=== PATIENT | female | born 1950 | race Caucasian/White ===

== ENCOUNTER → 2018-07-21 18:24 | Outpatient (CLI) | payer BC ==
[2009-10-03 22:33] VITALS: BMI 33.7
== END | disposition home or self-care (01) ==
LOC: D.MAMMO 07-06 15:00
DX: Z12.31 Encounter for screening mammogram for malignant neoplasm of breast (principal)

== ENCOUNTER → 2018-09-08 08:07 | Outpatient (CLI) | payer MEDICARE, OTHER ==
[2009-10-03 22:33] VITALS: BMI 33.7
== END | disposition home or self-care (01) ==
LOC: D.HCCARDIO 08:07
PROVIDERS: ATTEND Internal Medicine Cardiovascular Disease
DX: I10 Essential (primary) hypertension (principal)

== ENCOUNTER → 2020-01-25 12:49 | Outpatient (CLI) | payer MEDICARE, OTHER ==
[2009-10-03 22:33] VITALS: BMI 33.7
== END | disposition home or self-care (01) ==
LOC: D.HCCECHO 12:49
PROVIDERS: ATTEND Internal Medicine Cardiovascular Disease
DX: I34.0 Nonrheumatic mitral (valve) insufficiency (principal)

== ENCOUNTER 2020-02-06 08:00 | Outpatient (CLI) | payer MEDICARE, OTHER ==
[2009-10-03 22:33] VITALS: BMI 33.7
== END 2020-02-06 10:10 | disposition home or self-care (01) ==
LOC: D.MAMMO 08:00
PROVIDERS: ATTEND Nurse Practitioner
DX: Z12.31 Encounter for screening mammogram for malignant neoplasm of breast (principal)